=== PATIENT | male | born 1985 | race Asian ===

== ENCOUNTER 2019-08-30 23:22 | Emergency (ER) | payer OTHER ==
--- NOTE | 2019-08-31 01:19 | PDOC ---
History of Present Illness - General Chief Complaint: Foreign Body (FB) Stated Complaint: GLASS IN EYE Time Seen by Provider: 08/31/19 01:18 History Source: Patient - History of Present Illness Initial Comments: 08/31/19 01:41 34 year old male Complaining of left eye foreign body sensation. Patient reports that 3 days ago he was trying to take out pieces of the phone when a small piece of the glass dislodged up and hit the eye. Patient is unsure if piece of glass is stuck in the left eye. Denies vision changes/vision vision loss. Patient has no past medical history Past History - Past Medical History Home Medications: Ambulatory Orders Erythromycin 0.5% Eye Ointment [Erythromycin 0.5% Eye Ointment -] 1 applic OP TID #1 tube 08/31/19 *Physical Exam - Vital Signs 08/31/19 04:33 Last Vital Signs Temp Pulse Resp BP Pulse Ox 98.1 F 69 16 128/95 96 08/31/19 01:00 08/31/19 01:00 08/31/19 01:00 08/31/19 01:00 08/31/19 01:00 - Physical Exam General Appearance: Yes: Appropriately Dressed HEENT: positive: Other (+ fluroscein uptake to the left cornea. 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, Fully Oriented, Alert Medical Decision Making - Medical Decision Making 08/31/19 04:33 A: corneal abrasion P: erythromycin tetracaine + fluroscein Discharge - Discharge Information Problems reviewed: Yes Clinical Impression/Diagnosis: Corneal abrasion, left Qualifiers: Encounter type: initial encounter Qualified Code(s): S05.02XA - Injury of conjunctiva and corneal abrasion without foreign body, left eye, initial encounter Condition: Fair Disposition: HOME - Additional Discharge Information Prescriptions: Erythromycin 0.5% Eye Ointment [Erythromycin 0.5% Eye Ointment -] 1 applic OP TID #1 tube - Follow up/Referral Referrals: Maxi Chávez [Non Staff, Medical] - Isidro Chávez MD [Staff Physician] - Call tomorrow - Patient Discharge Instructions Patient Printed Discharge Instructions: DI for Corneal Abrasion Additional Instructions: use erythromycin ointment 3 times daily follow up with ophthalmology tomorrow return to the ER for any worsening symptoms - Post Discharge Activity Work/Back to School Note: Back to Work
[2019-08-31] MEDS ORDERED: TETRACAINE 0.5% OPHTH SOLN 2 ML BOTTLE ONE (01:31)
[2019-08-31] MEDS ORDERED: FLUORESCEIN NA 1 EA STRIP OS ONE (01:31)
[2019-08-31] MEDS ORDERED: ERYTHROMYCIN 0.5% OPHTHALMIC OINTMENT 3.5 GM TUBE ONE (01:31)
[2019-08-31] MEDS ORDERED: ERYTHROMYCIN 0.5% OPHTHALMIC OINTMENT 3.5 GM TUBE OU ONE (01:31)
[2019-08-31] MEDS ORDERED: FLUORESCEIN NA 1 EA STRIP ONE ×2 (01:31→01:35)
--- NOTE | 2019-08-31 01:32 | PDOC ---
Medical Decision Making - Medical Decision Making 08/31/19 01:32 Patient seen by the advanced practice provider under my direct supervision. Ancillary testing reviewed as necessary. I agree with plan as outlined by the advanced practice provider. Discharge - Discharge Information Problems reviewed: Yes Clinical Impression/Diagnosis: Corneal abrasion, left Qualifiers: Encounter type: initial encounter Qualified Code(s): S05.02XA - Injury of conjunctiva and corneal abrasion without foreign body, left eye, initial encounter Condition: Fair Disposition: HOME - Additional Discharge Information Prescriptions: Erythromycin 0.5% Eye Ointment [Erythromycin 0.5% Eye Ointment -] 1 applic OP TID #1 tube - Follow up/Referral Referrals: Isidro Chávez MD [Staff Physician] - Call tomorrow Maxi Chávez [Non Staff, Medical] - - Patient Discharge Instructions Patient Printed Discharge Instructions: DI for Corneal Abrasion Additional Instructions: use erythromycin ointment 3 times daily follow up with ophthalmology tomorrow return to the ER for any worsening symptoms - Post Discharge Activity Work/Back to School Note: Back to Work
[2019-08-31 02:36] VITALS: BP 128/95; PULSE 69; TEMP 98.1; BMI 35.5
[2019-08-31] MEDS ORDERED: TETRACAINE 0.5% HCL 0.6ML DROPPER.BOTTLE OS ONE (04:32)
== END 2019-08-31 02:44 | disposition home or self-care (01) ==
LOC: JER 23:22
PROC: 4A07X0Z Measurement of Visual Acuity, External Approach (ICD-10-PCS; principal; 2019-08-30)
DX: S05.02XA Injury of conjunctiva and corneal abrasion without foreign body, left eye, initial encounter (principal); W22.8XXA Striking against or struck by other objects, initial encounter; Y93.89 Activity, other specified; Y92.89 Other specified places as the place of occurrence of the external cause; Y99.8 Other external cause status
CPT/HCPCS: 99173; 99281-25

== ENCOUNTER 2020-05-03 22:29 | Emergency (ER) | payer OTHER ==
[2020-05-03 22:41] VITALS: TEMP 98.3; BMI 35.4
[2020-05-03] MEDS ORDERED: PANTOPRAZOLE SODIUM 40 MG VIAL IVPUSH ONE (22:55)
[2020-05-03] MEDS ORDERED: MAG HYDROX/AL HYDROX/SIMETH 30 ML UNIT-DOSE CUP PO ONE (23:03)
--- NOTE | 2020-05-03 23:09 | PDOC ---
History of Present Illness - General Chief Complaint: Chest Pain Stated Complaint: BURNING FEELING IN CHEST Time Seen by Provider: 05/03/20 22:49 History Source: Patient Exam Limitations: No Limitations - History of Present Illness Initial Comments: 05/03/20 23:05 34-year-old male past medical history of GERD with familial history of father with OR in the 50s as well as stroke and mother with OR presents to the ED complaining of 3 days of substernal chest pain described as burning without radiation. Patient states that the pain is worse on exertion as well as worse while laying down. Patient states he took Tums without relief. Saw his PCP today who suggested he come to the emergency room for ACS rule out. Of note patient had a CK drawn at his PCP which was 1100. Pt otherwise denies: fevers, chills, syncope, lightheadedness, dizziness, headaches, neck pain, shortness of breath, palpitations, back pain, abdominal pain, nausea, vomiting, diarrhea, constipation. Past History - Medical History Allergies/Adverse Reactions: Allergies Allergy/AdvReac Type Severity Reaction Status Date / Time No Known Allergies Allergy Verified 05/03/20 22:32 Home Medications: Ambulatory Orders Erythromycin 0.5% Eye Ointment [Erythromycin 0.5% Eye Ointment -] 1 applic OP TID #1 tube 08/31/19 Famotidine [Pepcid] 40 mg PO DAILY #14 tablet 05/04/20 CVA: No COPD: No - Immunization History Immunization Up to Date: Yes - Psycho-Social/Smoking History Smoking History: Current every day smoker Have you smoked in the past 12 months: Yes Number of Cigarettes Smoked Daily: 10 Information on smoking cessation initiated: Yes - Substance Abuse Hx (Audit-C & DAST Scrn) How often the patient has a drink containing alcohol: Never Score: In Men: 4 or > Positive; In Women: 3 or > Positive: 0 Screen Result (Pos requires Nsg. Audit-10AR): Negative In the last yr the pt used illegal drug/Rx for NonMed reason: No Score: Yes response is considered Positive: 0 Screen Result (Positive result requires Nsg. DAST-10): Negative Review of Systems - Review of Systems Constitutional: No: Chills, Fever, Weakness HEENTM: No: Double Vision Respiratory: No: Cough, Orthopnea, Shortness of Breath Cardiac (ROS): Yes: Chest Pain, Chest Tightness. No: Irregular Heart Rate, Palpitations, Syncope ABD/GI: No: Abdominal Distended, Constipated, Diarrhea, Nausea, Vomiting : No: Burning Musculoskeletal: No: Muscle Pain, Muscle Weakness Neurological: No: Headache, Numbness, Paresthesia *Physical Exam - Vital Signs Last Vital Signs Temp Pulse Resp BP Pulse Ox 98.3 F 89 18 133/70 96 05/03/20 22:30 05/03/20 22:30 05/03/20 22:30 05/03/20 22:30 05/03/20 22:30 - Physical Exam 05/03/20 23:06 Gen: AAOx 3, no acute distress, comfortable, no signs of respiratory distress HENT: atraumatic, normocephalic with no laceration or contusion. Nasal mucosa without erythema. Oropharynx without erythema or exudates. Mucous membranes moist. EYES: PERRL, EOM intact, conjunctiva pink NECK: supple; trachea midline; no JVD, no lymphadenopathy, or thyromegaly CV: RRR no murmurs, gallops, or rubs. CHEST: CTA b/l no wheezing, rales or rhonchi ABD: +BS/ND. no TTP; soft, no rebound, no guarding EXTREMITY: no cyanosis or erythema. 2+ dorsalis pedis, posterior tibial, and radial pulse. No pedal edema; no calf swelling or tenderness SKIN: no rash, warm and dry, no diaphoresis HEME: no purpura or ecchymosis NEURO: normal speech, CN II-XII intact, sensation intact, normal gait, no cerebellar deficits MS: 5/5 strength in all extremities, FROM intact in all extremities. ED Treatment Course - LABORATORY CBC & Chemistry Diagram: 05/03/20 23:10 05/03/20 23:08 - RADIOLOGY Radiology Studies Ordered: Category Date Time Status CHEST PA & LAT [RAD] Stat Radiology 05/03/20 22:55 Ordered Medical Decision Making - Medical Decision Making 05/03/20 23:08 This is a 34-year-old male past medical history of GERD with cardiac familial history. Vital signs stable EKG at triage normal sinus rhythm without ST elevations or depressions. Heart score of 2 Plan: Will obtain labs to assess for cardiac and electrolyte abnormalities. Will repeat CK to ensure downtrend. Chest XR to assess for cardiopulmonary abnormalities Will give Protonix and Maalox for symptomatic relief Will reassess based on results. Labs within normal limits troponin negative CK 253 XR WNL Patient appears well is safe stable for discharge Patient instructed to follow-up with PCP Cardiology and GI specialist as well as to use [id number] Pepcid for relief of symptoms Supportive care instructions explained and given to pt. Reasons to return em ergently to ER explained and given. Importance of follow up with PMD and other specialists as indicated stressed to pt. Pt verbalized understanding of instructions. Pt to follow up with PMD in 2 days. 05/04/20 00:51 Discharge - Discharge Information Problems reviewed: Yes Clinical Impression/Diagnosis: GERD (gastroesophageal reflux disease) Qualifiers: Esophagitis presence: esophagitis presence not specified Qualified Code(s): K21.9 - Gastro-esophageal reflux disease without esophagitis Condition: Stable Disposition: HOME - Admission No - Additional Discharge Information Prescriptions: Famotidine [Pepcid] 40 mg PO DAILY #14 tablet - Follow up/Referral Referrals: Mariah Stokes MD [Primary Care Provider] - - Patient Discharge Instructions Patient Printed Discharge Instructions: GERD Diet Additional Instructions: Follow up with PCP and GI Doctor - Post Discharge Activity Work/Back to School Note: Back to Work
[2020-05-03] MEDS ORDERED: MAG HYDROX/AL HYDROX/SIMETH 30 ML UNIT-DOSE CUP ONE (23:11)
[2020-05-03] MEDS ORDERED: PANTOPRAZOLE SODIUM 40 MG VIAL ONE (23:11)
[2020-05-03 23:41] LABS: BASO % 0.8 % (0-2.0); EOS % 2.3 % (0-4.5); HEMATOCRIT 41.1 % (35.4-49); HEMOGLOBIN 13.8 GM/dL (11.7-16.9); LYMPH % 34.7 % (8-40); MCH 29.2 pg (25.7-33.7); MCHC 33.7 g/dl (32.0-35.9); MEAN CELL VOLUME 86.5 fl (80-96); MEAN PLT VOLUME 8.5 fl (7.5-11.1); MONO % 8.2 % (3.8-10.2); PLATELET COUNT 259 K/MM3 (134-434); RBC 4.74 M/mm3 (4.00-5.60); RDW 14.2 % (11.9-15.9); WHITE BLOOD COUNT 9.6 K/mm3 (4.0-10.0)
[2020-05-03 23:46] LABS: INR 1.05 (0.83-1.09); PROTHROMBIN TIME (PATIENT) 12.4 SEC (9.7-13.0)
[2020-05-04 00:19] LABS: BLOOD UREA NITROGEN 20.9 mg/dL (7-18); SGOT/AST 21 U/L (15-37); TOT PROT 7.3 g/dl (6.4-8.2)
[2020-05-04 00:20] LABS: ALBUMIN 3.9 g/dl (3.4-5.0); ALK PHOS 70 U/L (45-117); ANION GAP 6 MMOL/L (8-16); BILIRUBIN,TOTAL 0.2 mg/dL (0.2-1); CALCIUM 8.9 mg/dL (8.5-10.1); CHLORIDE 108 mmol/L (98-107); CO2 26 mmol/L (21-32); CREATININE 1.1 mg/dL (0.55-1.3); GLUCOSE,RANDOM 130 mg/dL (74-106); N-TERMINAL BNP 11.3 pg/ml (5-125); SGPT/ALT 27 U/L (13-61); SODIUM 140 mmol/L (136-145)
[2020-05-04 01:59] VITALS: BP 124/70; PULSE 76
--- NOTE | 2020-05-07 14:21 | EKG ---
Test Reason : Blood Pressure : / mmHG Vent. Rate : 080 BPM Atrial Rate : 080 BPM P-R Int : 126 ms QRS Dur : 104 ms QT Int : 378 ms P-R-T Axes : 050 023 002 degrees QTc Int : 435 ms NORMAL SINUS RHYTHM NORMAL ECG NO PREVIOUS ECGS AVAILABLE Confirmed by THOMAS DINH MD ([id number]) on 05/07/2020 2:20:31 PM Referred By: Confirmed By:THOMAS DINH MD
== END 2020-05-04 01:59 | disposition home or self-care (01) ==
LOC: JER 22:29
PROC: 3E033GC Introduction of Other Therapeutic Substance into Peripheral Vein, Percutaneous Approach (ICD-10-PCS; principal; 2020-05-03)
DX: K21.9 Gastro-esophageal reflux disease without esophagitis (principal)
CPT/HCPCS: 36415; 71046-TC-FY; 80053; 82550; 82553; 83880; 84484; 85025; 85610; 93005; 93010; 99285-25

== ENCOUNTER 2022-01-14 20:35 | Emergency (ER) | payer OTHER ==
[2022-01-14 20:43] VITALS: BP 131/85; PULSE 72; TEMP 98.1; BMI 34.0
== END 2022-01-14 23:24 | disposition left against medical advice (07) ==
LOC: JERFT 20:35
DX: R07.9 Chest pain, unspecified (principal)
CPT/HCPCS: 93005; 93010; 99283-25